=== PATIENT | female | born 1970 | race Caucasian/White ===

== ENCOUNTER → 2022-04-27 | Outpatient (REF) | LOC: M PLAIMG 11:54 | PROVIDERS: ATTEND Internal Medicine | DX: M25.511 Pain in right shoulder (principal); M54.50 Low back pain, unspecified ==

== ENCOUNTER → 2022-06-28 | Outpatient (CLI) | LOC: M SOG 11:56 | PROVIDERS: ATTEND Orthopaedic Surgery | DX: M25.511 Pain in right shoulder (principal) ==

== ENCOUNTER → 2022-08-25 | Outpatient (REF) | payer OTHER | LOC: M SFHCDERM 18:05 | PROVIDERS: ATTEND Nurse Practitioner Family | DX: D49.2 Neoplasm of unspecified behavior of bone, soft tissue, and skin (principal) ==